=== PATIENT | male | born 1960 | race Caucasian/White ===

== ENCOUNTER 2018-02-09 22:03 | Emergency (ER) | payer MEDICARE, BC, OTHER ==
[2018-02-09 22:47] LABS: ADD MAN DIFF? NO
[2018-02-09 22:49] LABS: ABNORMAL IP MESSAGE 1; BASOPHILS % 0.2 % (0.0-2.0); EOSINOPHILS % 0.1 % (0.0-7.0); HEMATOCRIT 36.2 % (42.0-52.0); HEMOGLOBIN 12.1 g/dl (14.0-18.0); LYMPHOCYTES # 0.5 10^3/ul (0.8-2.9); LYMPHOCYTES % 4.3 % (15.0-51.0); MEAN CORPUSCULAR HEMOGLOBIN 29.5 pg (29.0-33.0); MEAN CORPUSCULAR HGB CONC 33.4 g/dl (32.0-37.0); MEAN CORPUSCULAR VOLUME 88.3 fl (82.0-101.0); MEAN PLATELET VOLUME 10.6 fl (7.4-10.4); MONOCYTE # 1.5 10^3/ul (0.3-0.9); MONOCYTES % 12.1 % (0.0-11.0); PLATELET COUNT 225 10^3/UL (140-415); POSITIVE DIFF @See below; RED CELL DISTRIBUTION WIDTH 15.1 % (11.5-14.5)
[2018-02-09 22:49] LABS: WHITE BLOOD COUNT 12.1 10^3/ul (4.8-10.8)
[2018-02-09 23:07] LABS: ALANINE AMINOTRANSFERASE 26 IU/L (13-69); ALBUMIN 4.6 g/dl (3.3-4.9); ALBUMIN/GLOBULIN RATIO 1.09; ALKALINE PHOSPHATASE 52 IU/L (42-121); ANION GAP 23 (8-16); ASPARTATE AMINO TRANSFERASE 34 IU/L (15-46); BILIRUBIN,INDIRECT 0.2 mg/dl (0-1.1); BILIRUBIN,TOTAL 0.2 mg/dl (0.2-1.3); BLOOD UREA NITROGEN 31 mg/dl (7-20); CALCIUM 8.9 mg/dl (8.4-10.2); CARBON DIOXIDE 26 mmol/L (21-31); CHLORIDE 98 mmol/L (97-110); CREATININE 2.37 mg/dl (0.61-1.24); GLUCOSE 153 mg/dl (70-220); POTASSIUM 3.5 mmol/L (3.5-5.1); SODIUM 143 mmol/L (135-144); TOTAL PROTEIN 8.8 g/dl (6.1-8.1)
[2018-02-09 23:08] LABS: LACTIC ACID 1.1 mmol/L (0.5-2.0)
[2018-02-09 23:18] LABS: TROPONIN-I 0.087 ng/ml (0.00-0.12)
[2018-02-09 23:23] LABS: INR 1.19; PROTIME 15.3 Sec (11.9-14.9); PT RATIO 1.2
[2018-02-09 23:24] LABS: PARTIAL THROMBOPLASTIN TIME 31.1 Sec (25.0-35.0)
[2018-02-10 01:05] LABS: ADD UMIC YES; UR AMORPHOUS CRYSTAL FEW /HPF (NONE SEEN); UR ASCORBIC ACID NEGATIVE (NEGATIVE); UR BACTERIA FEW /HPF (NONE SEEN); UR BILIRUBIN (Dip) NEGATIVE (NEGATIVE); UR BLOOD (Dip) 2+ mg/dL (NEGATIVE); UR CLARITY CLOUDY (CLEAR); UR COLOR YELLOW (YELLOW); UR GLUCOSE (Dip) 1+ mg/dL (NEGATIVE); UR KETONES (Dip) NEGATIVE (NEGATIVE); UR LEUKOCYTE ESTERASE (Dip) 3+ Leu/ul (NEGATIVE); UR NITRITE (Dip) POSITIVE (NEGATIVE); UR RBC 6 /HPF (0-5); UR SPECIFIC GRAVITY (Dip) 1.013 (1.003-1.030); UR SQUAMOUS EPITHELIAL CELL FEW /HPF (FEW); UR TOTAL PROTEIN (Dip) 2+ mg/dl (NEGATIVE); UR UROBILINOGEN (Dip) NEGATIVE (NEGATIVE); UR WBC > 182 /HPF (0-5)
== END 2018-02-10 02:47 | disposition home or self-care (01) ==
LOC: E/R 22:03
DX: E11.649 Type 2 diabetes mellitus with hypoglycemia without coma (principal); I10 Essential (primary) hypertension
CPT/HCPCS: 36415; 71045; 80053; 81001; 83605; 84484; 85025; 85610; 85730; 87040; 87086; 99285-25

== ENCOUNTER 2018-09-25 15:52 | Inpatient (IN) | payer MEDICARE, BC ==
[~2018-09-25 15:52] MED LIST: PIPER-TAZO 3.375 GM IV (PMX) 100 ML IVPB
[2018-09-25] MEDS: SODIUM CHLORIDE 0.9% 1L BAG IV* (16:27)
[2018-09-25] MEDS: ACETAMINOPHEN 500 MG TAB PO (16:27)
[2018-09-25 16:28] LABS: ADD MAN DIFF? NO
[2018-09-25] MEDS: metroNIDAZOLE 500 MG/NS (PMX) 100 ML IVPB (16:29)
[2018-09-25 16:35] LABS: BASOPHILS % 0.2 % (0.0-2.0); EOSINOPHILS # 0.2 10^3/ul (0.0-0.5); EOSINOPHILS % 2.1 % (0.0-7.0); HEMATOCRIT 40.4 % (42.0-52.0); HEMOGLOBIN 12.8 g/dl (14.0-18.0); LYMPHOCYTES # 0.7 10^3/ul (0.8-2.9); LYMPHOCYTES % 7.9 % (15.0-51.0); MEAN CORPUSCULAR HEMOGLOBIN 29.1 pg (29.0-33.0); MEAN CORPUSCULAR HGB CONC 31.7 g/dl (32.0-37.0); MEAN CORPUSCULAR VOLUME 91.8 fl (82.0-101.0); MEAN PLATELET VOLUME 10.3 fl (7.4-10.4); MONOCYTE # 0.3 10^3/ul (0.3-0.9); MONOCYTES % 3.2 % (0.0-11.0); NEUTROPHIL # 7.4 10^3/ul (1.6-7.5); NEUTROPHILS % 86.1 % (39.0-77.0); PLATELET COUNT 202 10^3/UL (140-415); RED CELL DISTRIBUTION WIDTH 15.2 % (11.5-14.5)
[2018-09-25 16:35] LABS: WHITE BLOOD COUNT 8.6 10^3/ul (4.8-10.8)
[2018-09-25 16:54] LABS: ADD UMIC YES; UR ASCORBIC ACID NEGATIVE (NEGATIVE); UR BACTERIA MANY /HPF (NONE SEEN); UR BILIRUBIN (Dip) NEGATIVE (NEGATIVE); UR BLOOD (Dip) 1+ mg/dL (NEGATIVE); UR CLARITY SLIGHTLY CLOUDY (CLEAR); UR COLOR YELLOW (YELLOW); UR GLUCOSE (Dip) 2+ mg/dL (NEGATIVE); UR KETONES (Dip) NEGATIVE (NEGATIVE); UR LEUKOCYTE ESTERASE (Dip) 2+ Leu/ul (NEGATIVE); UR NITRITE (Dip) NEGATIVE (NEGATIVE); UR RBC 7 /HPF (0-5); UR SPECIFIC GRAVITY (Dip) 1.011 (1.003-1.030); UR TOTAL PROTEIN (Dip) 1+ mg/dl (NEGATIVE); UR UROBILINOGEN (Dip) NEGATIVE (NEGATIVE); UR WBC 111 /HPF (0-5)
[2018-09-25 16:55] LABS: INR 1.09; PROTIME 14.2 Sec (11.9-14.9); PT RATIO 1.1
[2018-09-25 16:56] LABS: PARTIAL THROMBOPLASTIN TIME 23.4 Sec (23.0-35.0)
[2018-09-25 17:16] LABS: ANION GAP 11 (5-13); BLOOD UREA NITROGEN 27 mg/dl (7-20); CALCIUM 9.4 mg/dl (8.4-10.2); CARBON DIOXIDE 24 mmol/L (21-31); CHLORIDE 105 mmol/L (97-110); CREATININE 2.27 mg/dl (0.61-1.24); Estimated GFR 30 mL/min (>60); GLUCOSE 108 mg/dl (70-220); POTASSIUM 4.1 mmol/L (3.5-5.1); SODIUM 140 mmol/L (135-144)
[2018-09-25] MEDS: PIPER-TAZO 3.375 GM IV (PMX) 100 ML IVPB (17:16)
[2018-09-25 17:28] LABS: TROPONIN-I 0.046 ng/ml (0.000-0.120)
[2018-09-25] MEDS: MAGNESIUM SULFATE 2 GM/50 ML 50 ML IVPB (18:30)
[2018-09-25 18:41] LABS: LACTIC ACID 1.5 mmol/L (0.5-2.0)
[2018-09-25] MEDS: NORepinephrine 8MG/250 ML (PMX 250 ML IV (19:27)
[2018-09-25] MEDS ORDERED: NORepinephrine 8MG/250 ML (PMX 250 ML IV (22:00)
[2018-09-25] MEDS ORDERED: ACETAMINOPHEN 650MG/20.3ML CUP PO (22:00)
[2018-09-25] MEDS ORDERED: ALBUTEROL/IPRATROPIUM (NEB) 3 ML AMP NEB (22:00)
[2018-09-25] MEDS ORDERED: ONDANSETRON 4 MG INJ IV (22:00)
[2018-09-25 22:05] LABS: HEMOGLOBIN A1C 8.3 % (0-5.9)
[2018-09-25] MEDS ORDERED: VANCOMYCIN IV PER PHARMACY XX (23:00)
[2018-09-25] MEDS: SOD CHLORIDE 0.9% 1,000 ML IV (23:14)
[2018-09-26] MEDS: VANCOMYCIN 2 GM in SOD CHLORIDE 0.9% 500 ML IVPB (00:57)
[2018-09-26] MEDS ORDERED: GLUCOSE GEL 15 GRAM TUBE BUCCAL (01:00)
[2018-09-26] MEDS ORDERED: GLUCOSE GEL 15 GRAM TUBE PO ×2 (01:00)
[2018-09-26] MEDS ORDERED: DEXTROSE 50% 50 ML SYRINGE IV ×2 (01:00)
[2018-09-26] MEDS ORDERED: GLUCAGON 1 MG INJ IM (01:00)
[2018-09-26] MEDS: ACCU-CHEK XX (02:00)
[2018-09-26] MEDS: PIPER-TAZO 2.25 GM (PMX) 50 ML IVPB ×4 (03:13→18:40)
[2018-09-26] MEDS: MAGNESIUM HYDROXIDE 30ML CUP PO (03:20)
[2018-09-26] MEDS: SOD CHLORIDE 0.9% 1,000 ML IV ×3 (06:54→21:45)
[2018-09-26 07:55] LABS: ADD MAN DIFF? NO
[2018-09-26 07:58] LABS: BASOPHIL # 0.1 10^3/ul (0.0-0.1); BASOPHILS % 0.4 % (0.0-2.0); EOSINOPHILS # 0.1 10^3/ul (0.0-0.5); EOSINOPHILS % 0.5 % (0.0-7.0); HEMATOCRIT 35.9 % (42.0-52.0); HEMOGLOBIN 11.4 g/dl (14.0-18.0); LYMPHOCYTES # 0.8 10^3/ul (0.8-2.9); LYMPHOCYTES % 4.7 % (15.0-51.0); MEAN CORPUSCULAR HEMOGLOBIN 29.2 pg (29.0-33.0); MEAN CORPUSCULAR HGB CONC 31.8 g/dl (32.0-37.0); MEAN CORPUSCULAR VOLUME 91.8 fl (82.0-101.0); MEAN PLATELET VOLUME 9.9 fl (7.4-10.4); MONOCYTE # 1.2 10^3/ul (0.3-0.9); MONOCYTES % 6.6 % (0.0-11.0); NEUTROPHIL # 15.4 10^3/ul (1.6-7.5); NEUTROPHILS % 87.2 % (39.0-77.0); PLATELET COUNT 214 10^3/UL (140-415); RED BLOOD COUNT 3.91 10^6/ul (4.70-6.10); RED CELL DISTRIBUTION WIDTH 15.6 % (11.5-14.5)
[2018-09-26 07:58] LABS: WHITE BLOOD COUNT 17.6 10^3/ul (4.8-10.8)
[2018-09-26 08:21] LABS: ALANINE AMINOTRANSFERASE 33 IU/L (13-69); ALBUMIN 3.6 g/dl (3.3-4.9); ALBUMIN/GLOBULIN RATIO 1.24; ALKALINE PHOSPHATASE 46 IU/L (42-121); ANION GAP 10 (5-13); ASPARTATE AMINO TRANSFERASE 35 IU/L (15-46); BILIRUBIN,INDIRECT 0.3 mg/dl (0-1.1); BILIRUBIN,TOTAL 0.3 mg/dl (0.2-1.3); BLOOD UREA NITROGEN 27 mg/dl (7-20); CALCIUM 8.1 mg/dl (8.4-10.2); CARBON DIOXIDE 24 mmol/L (21-31); CHLORIDE 109 mmol/L (97-110); CREATININE 2.45 mg/dl (0.61-1.24); Estimated GFR 27 mL/min (>60); GLUCOSE 163 mg/dl (70-220); POTASSIUM 4.1 mmol/L (3.5-5.1); SODIUM 143 mmol/L (135-144); TOTAL PROTEIN 6.5 g/dl (6.1-8.1)
[2018-09-26] MEDS ORDERED: HEPARIN 5,000 UNIT/0.5 ML VIAL ×2 (08:38→20:47)
[2018-09-26] MEDS: FENOFIBRATE 145 MG TAB PO (08:49)
[2018-09-26] MEDS: ASPIRIN (EC) 81 MG TAB PO (08:50)
[2018-09-26] MEDS: FAMOTIDINE 20 MG INJ IV (08:51)
[2018-09-26] MEDS: HEPARIN 5,000 UNIT/1 ML VIAL SC ×2 (08:52→21:12)
[2018-09-26] MEDS: INSULIN ASPART [NOVOLOG] 3 ML PEN SC ×4 (08:55→21:14)
[2018-09-26 17:09] LABS: ADD UMIC YES; UR ASCORBIC ACID NEGATIVE (NEGATIVE); UR BACTERIA FEW /HPF (NONE SEEN); UR BILIRUBIN (Dip) NEGATIVE (NEGATIVE); UR BLOOD (Dip) 2+ mg/dL (NEGATIVE); UR CLARITY SLIGHTLY CLOUDY (CLEAR); UR COLOR YELLOW (YELLOW); UR GLUCOSE (Dip) 1+ mg/dL (NEGATIVE); UR KETONES (Dip) NEGATIVE (NEGATIVE); UR LEUKOCYTE ESTERASE (Dip) 3+ Leu/ul (NEGATIVE); UR NITRITE (Dip) NEGATIVE (NEGATIVE); UR RBC 30 /HPF (0-5); UR SPECIFIC GRAVITY (Dip) 1.012 (1.003-1.030); UR TOTAL PROTEIN (Dip) NEGATIVE (NEGATIVE); UR UROBILINOGEN (Dip) NEGATIVE (NEGATIVE); UR WBC 82 /HPF (0-5)
[2018-09-26 17:28] LABS: SODIUM,URINE RANDOM 102 mmol/L (30-90)
[2018-09-26] MEDS: ATORVASTATIN 40 MG TAB PO (21:05)
[2018-09-26] MEDS: INSULIN GLARGINE [LANTus] (100 UNITS/ML) SYG SC (21:11)
[2018-09-26] MEDS: NIACIN (ER) 500 MG TAB PO (22:11)
[2018-09-27] MEDS: PIPER-TAZO 2.25 GM (PMX) 50 ML IVPB ×4 (00:20→17:22)
[2018-09-27] MEDS: ACCU-CHEK XX (01:28)
[2018-09-27] MEDS: VANCOMYCIN 1 GM 250 ML IVPB (01:29)
[2018-09-27] MEDS: SOD CHLORIDE 0.9% 1,000 ML IV ×2 (01:29→12:37)
[2018-09-27 05:05] LABS: ADD MAN DIFF? NO
[2018-09-27 05:14] LABS: BASOPHILS % 0.3 % (0.0-2.0); EOSINOPHILS # 0.3 10^3/ul (0.0-0.5); EOSINOPHILS % 2.8 % (0.0-7.0); HEMATOCRIT 33.1 % (42.0-52.0); HEMOGLOBIN 10.5 g/dl (14.0-18.0); LYMPHOCYTES % 10.3 % (15.0-51.0); MEAN CORPUSCULAR HEMOGLOBIN 29.2 pg (29.0-33.0); MEAN CORPUSCULAR HGB CONC 31.7 g/dl (32.0-37.0); MEAN CORPUSCULAR VOLUME 92.2 fl (82.0-101.0); MEAN PLATELET VOLUME 10.8 fl (7.4-10.4); MONOCYTE # 0.6 10^3/ul (0.3-0.9); MONOCYTES % 6.8 % (0.0-11.0); NEUTROPHIL # 7.3 10^3/ul (1.6-7.5); NEUTROPHILS % 79.4 % (39.0-77.0); PLATELET COUNT 171 10^3/UL (140-415); RED BLOOD COUNT 3.59 10^6/ul (4.70-6.10); RED CELL DISTRIBUTION WIDTH 15.8 % (11.5-14.5)
[2018-09-27 05:14] LABS: WHITE BLOOD COUNT 9.2 10^3/ul (4.8-10.8)
[2018-09-27 05:35] LABS: BLOOD UREA NITROGEN 23 mg/dl (7-20); CALCIUM 7.7 mg/dl (8.4-10.2); CARBON DIOXIDE 25 mmol/L (21-31); CHLORIDE 113 mmol/L (97-110); Estimated GFR 31 mL/min (>60); GLUCOSE 111 mg/dl (70-220); POTASSIUM 4.6 mmol/L (3.5-5.1)
[2018-09-27 05:42] LABS: ANION GAP 4 (5-13); SODIUM 142 mmol/L (135-144)
[2018-09-27] MEDS: INSULIN ASPART [NOVOLOG] 3 ML PEN SC ×4 (07:35→20:44)
[2018-09-27] MEDS ORDERED: HEPARIN 5,000 UNIT/0.5 ML VIAL ×2 (08:05→20:46)
[2018-09-27] MEDS: FAMOTIDINE 20 MG INJ IV (08:12)
[2018-09-27] MEDS: ASPIRIN (EC) 81 MG TAB PO (08:12)
[2018-09-27] MEDS: FENOFIBRATE 145 MG TAB PO (08:12)
[2018-09-27] MEDS: NEUTRA-PHOS 250 MG PACKET PO (08:12)
[2018-09-27] MEDS: HEPARIN 5,000 UNIT/1 ML VIAL SC ×2 (08:14→20:54)
[2018-09-27 16:52] LABS: CREATININE, RANDOM URINE 66 mg/dL (20-320); MICROALBUMIN 6.8 mg/dL; MICROALBUMIN/CREATININE RATIO 103 (<30)
[2018-09-27] MEDS: INSULIN GLARGINE [LANTus] (100 UNITS/ML) SYG SC (20:58)
[2018-09-27] MEDS: NIACIN (ER) 500 MG TAB PO (21:00)
[2018-09-27] MEDS: ATORVASTATIN 40 MG TAB PO (21:00)
[2018-09-28] MEDS: PIPER-TAZO 2.25 GM (PMX) 50 ML IVPB ×2 (00:10→05:11)
[2018-09-28 05:13] LABS: ADD MAN DIFF? NO
[2018-09-28 05:20] LABS: WHITE BLOOD COUNT 7.6 10^3/ul (4.8-10.8)
[2018-09-28 05:20] LABS: BASOPHILS % 0.4 % (0.0-2.0); EOSINOPHILS # 0.5 10^3/ul (0.0-0.5); EOSINOPHILS % 5.9 % (0.0-7.0); HEMOGLOBIN 10.8 g/dl (14.0-18.0); LYMPHOCYTES % 13.6 % (15.0-51.0); MEAN CORPUSCULAR HEMOGLOBIN 28.7 pg (29.0-33.0); MEAN CORPUSCULAR HGB CONC 30.9 g/dl (32.0-37.0); MEAN CORPUSCULAR VOLUME 93.1 fl (82.0-101.0); MEAN PLATELET VOLUME 10.7 fl (7.4-10.4); MONOCYTE # 0.6 10^3/ul (0.3-0.9); MONOCYTES % 7.8 % (0.0-11.0); NEUTROPHIL # 5.5 10^3/ul (1.6-7.5); PLATELET COUNT 193 10^3/UL (140-415); RED BLOOD COUNT 3.76 10^6/ul (4.70-6.10); RED CELL DISTRIBUTION WIDTH 15.4 % (11.5-14.5)
[2018-09-28 06:02] LABS: ANION GAP 8 (5-13); BLOOD UREA NITROGEN 17 mg/dl (7-20); CALCIUM 8.3 mg/dl (8.4-10.2); CARBON DIOXIDE 24 mmol/L (21-31); CHLORIDE 111 mmol/L (97-110); CREATININE 2.13 mg/dl (0.61-1.24); Estimated GFR 32 mL/min (>60); GLUCOSE 75 mg/dl (70-220); MAGNESIUM 1.8 mg/dl (1.7-2.5); PHOSPHORUS 2.9 mg/dl (2.5-4.9); SODIUM 143 mmol/L (135-144)
[2018-09-28 06:04] LABS: POTASSIUM 4.4 mmol/L (3.5-5.1)
[2018-09-28] MEDS: SOD CHLORIDE 0.9% 1,000 ML IV (07:16)
[2018-09-28] MEDS: INSULIN ASPART [NOVOLOG] 3 ML PEN SC ×2 (07:34→11:30)
[2018-09-28] MEDS ORDERED: HEPARIN 5,000 UNIT/0.5 ML VIAL (08:48)
[2018-09-28] MEDS: FENOFIBRATE 145 MG TAB PO (08:52)
[2018-09-28] MEDS: FAMOTIDINE 20 MG INJ IV (08:52)
[2018-09-28] MEDS: ASPIRIN (EC) 81 MG TAB PO (08:52)
[2018-09-28] MEDS: HEPARIN 5,000 UNIT/1 ML VIAL SC (08:54)
[2018-09-28] MEDS: CEPHALEXIN 500 MG CAP PO (10:28)
== END 2018-09-28 14:50 | disposition home or self-care (01) | DRG 871 ==
LOC: E/R 15:52 → ICU 21:54
DX: A41.9 Sepsis, unspecified organism (principal); R65.21 Severe sepsis with septic shock; N39.0 Urinary tract infection, site not specified; N17.9 Acute kidney failure, unspecified; N18.4 Chronic kidney disease, stage 4 (severe); E78.5 Hyperlipidemia, unspecified; R06.03 Acute respiratory distress; E11.22 Type 2 diabetes mellitus with diabetic chronic kidney disease; R10.9 Unspecified abdominal pain; I12.9 Hypertensive chronic kidney disease with stage 1 through stage 4 chronic kidney disease, or unspecified chronic kidney disease; Z79.4 Long term (current) use of insulin; Z90.5 Acquired absence of kidney
CPT/HCPCS: 36415; 71045; 74018; 76775; 80048; 80053; 81001; 81003; 82043; 82962; 83036; 83605; 83735; 84100; 84155; 84300; 84484; 85025; 85610; 85730; 87040; 87045; 87075; 87081; 87086; 93005; 96374; 96375; 99291-25

== ENCOUNTER 2018-11-15 08:20 | Emergency (ER) | payer MEDICARE, BC ==
[2018-11-15] MEDS: morphine 4 MG/ML VIAL IV (08:50)
[2018-11-15] MEDS: SOD CHLORIDE 0.9% 1,000 ML IV (08:50)
[2018-11-15] MEDS: ONDANSETRON 4 MG INJ IV (08:50)
[2018-11-15] MEDS: PANTOPRAZOLE 40 MG INJ IV (08:50)
[2018-11-15 09:03] LABS: ADD UMIC YES; UR ASCORBIC ACID NEGATIVE (NEGATIVE); UR BILIRUBIN (Dip) NEGATIVE (NEGATIVE); UR BLOOD (Dip) 2+ mg/dL (NEGATIVE); UR CLARITY SLIGHTLY CLOUDY (CLEAR); UR COLOR YELLOW (YELLOW); UR GLUCOSE (Dip) NEGATIVE (NEGATIVE); UR KETONES (Dip) NEGATIVE (NEGATIVE); UR LEUKOCYTE ESTERASE (Dip) 1+ Leu/ul (NEGATIVE); UR NITRITE (Dip) NEGATIVE (NEGATIVE); UR RBC 1 /HPF (0-5); UR SPECIFIC GRAVITY (Dip) 1.014 (1.003-1.030); UR TOTAL PROTEIN (Dip) 1+ mg/dl (NEGATIVE); UR UROBILINOGEN (Dip) NEGATIVE (NEGATIVE); UR WBC 9 /HPF (0-5)
[2018-11-15] MEDS: CEFTRIAXONE 1 GM/50 ML (PMX) 50 ML IVPB (09:21)
[2018-11-15 09:26] LABS: ADD MAN DIFF? NO
[2018-11-15 09:32] LABS: WHITE BLOOD COUNT 10.8 10^3/ul (4.8-10.8)
[2018-11-15 09:32] LABS: ABNORMAL IP MESSAGE 1; BASOPHIL # 0.1 10^3/ul (0.0-0.1); BASOPHILS % 0.5 % (0.0-2.0); EOSINOPHILS # 0.3 10^3/ul (0.0-0.5); EOSINOPHILS % 2.7 % (0.0-7.0); HEMATOCRIT 39.4 % (42.0-52.0); HEMOGLOBIN 12.9 g/dl (14.0-18.0); LYMPHOCYTES % 9.3 % (15.0-51.0); MEAN CORPUSCULAR HEMOGLOBIN 29.1 pg (29.0-33.0); MEAN CORPUSCULAR HGB CONC 32.7 g/dl (32.0-37.0); MEAN CORPUSCULAR VOLUME 88.9 fl (82.0-101.0); MEAN PLATELET VOLUME 10.5 fl (7.4-10.4); MONOCYTE # 1.5 10^3/ul (0.3-0.9); NEUTROPHIL # 7.9 10^3/ul (1.6-7.5); NEUTROPHILS % 73.2 % (39.0-77.0); PLATELET COUNT 268 10^3/UL (140-415); POSITIVE DIFF @See below; RED BLOOD COUNT 4.43 10^6/ul (4.70-6.10); RED CELL DISTRIBUTION WIDTH 15.3 % (11.5-14.5)
[2018-11-15 09:49] LABS: ALANINE AMINOTRANSFERASE 37 IU/L (13-69); ALBUMIN 4.5 g/dl (3.3-4.9); ALBUMIN/GLOBULIN RATIO 1.12; ALKALINE PHOSPHATASE 60 IU/L (42-121); ANION GAP 14 (5-13); ASPARTATE AMINO TRANSFERASE 62 IU/L (15-46); BILIRUBIN,INDIRECT 0.3 mg/dl (0-1.1); BILIRUBIN,TOTAL 0.3 mg/dl (0.2-1.3); BLOOD UREA NITROGEN 37 mg/dl (7-20); CALCIUM 9.4 mg/dl (8.4-10.2); CARBON DIOXIDE 21 mmol/L (21-31); CHLORIDE 107 mmol/L (97-110); CREATININE 2.65 mg/dl (0.61-1.24); Estimated GFR 25 mL/min (>60); GLUCOSE 148 mg/dl (70-220); LIPASE 313 U/L (23-300); POTASSIUM 4.2 mmol/L (3.5-5.1); SODIUM 142 mmol/L (135-144); TOTAL PROTEIN 8.5 g/dl (6.1-8.1)
== END 2018-11-15 11:29 | disposition home or self-care (01) ==
LOC: E/R 08:20
DX: N30.90 Cystitis, unspecified without hematuria (principal); I10 Essential (primary) hypertension; Z79.4 Long term (current) use of insulin; Z79.82 Long term (current) use of aspirin
CPT/HCPCS: 36415; 74176; 80053; 81001; 83690; 85025; 87086; 96374; 96375; 99285-25

== ENCOUNTER 2019-01-16 18:39 | Inpatient (IN) | payer MEDICARE, BC ==
[2019-01-16] MEDS: DILTIAZEM 25 MG INJ IV ×4 (19:07→20:00)
[2019-01-16 19:22] LABS: ADD MAN DIFF? NO
[2019-01-16 19:29] LABS: BASOPHIL # 0.1 10^3/ul (0.0-0.1); BASOPHILS % 0.8 % (0.0-2.0); EOSINOPHILS # 0.3 10^3/ul (0.0-0.5); EOSINOPHILS % 4.1 % (0.0-7.0); HEMATOCRIT 42.4 % (42.0-52.0); HEMOGLOBIN 13.9 g/dl (14.0-18.0); LYMPHOCYTES # 1.5 10^3/ul (0.8-2.9); LYMPHOCYTES % 19.9 % (15.0-51.0); MEAN CORPUSCULAR HEMOGLOBIN 29.2 pg (29.0-33.0); MEAN CORPUSCULAR HGB CONC 32.8 g/dl (32.0-37.0); MEAN CORPUSCULAR VOLUME 89.1 fl (82.0-101.0); MEAN PLATELET VOLUME 10.8 fl (7.4-10.4); MONOCYTE # 0.8 10^3/ul (0.3-0.9); MONOCYTES % 10.2 % (0.0-11.0); NEUTROPHIL # 4.9 10^3/ul (1.6-7.5); NEUTROPHILS % 64.5 % (39.0-77.0); PLATELET COUNT 255 10^3/UL (140-415); RED BLOOD COUNT 4.76 10^6/ul (4.70-6.10); RED CELL DISTRIBUTION WIDTH 14.5 % (11.5-14.5)
[2019-01-16 19:29] LABS: WHITE BLOOD COUNT 7.6 10^3/ul (4.8-10.8)
[2019-01-16 19:35] LABS: URINE PH (Dip) POC 6.5 (5.0-8.5)
[2019-01-16 19:35] LABS: URINE BLOOD (Dip) POC 1+ (NEGATIVE); URINE KETONES (Dip) POC Negative (NEGATIVE); URINE LEUKOCYTE EST (Dip) POC Trace (NEGATIVE); URINE NITRITE (Dip) POC Negative (NEGATIVE); URINE TOTAL PROTEIN POC 2+ (NEGATIVE)
[2019-01-16 19:44] LABS: INR 1.04; PROTIME 13.7 Sec (11.9-14.9); PT RATIO 1.1
[2019-01-16 19:45] LABS: PARTIAL THROMBOPLASTIN TIME 27.7 Sec (23.0-35.0)
[2019-01-16 19:47] LABS: ANION GAP 12 (5-13); BLOOD UREA NITROGEN 31 mg/dl (7-20); CALCIUM 9.9 mg/dl (8.4-10.2); CARBON DIOXIDE 25 mmol/L (21-31); CHLORIDE 99 mmol/L (97-110); Estimated GFR 39 mL/min (>60); GLUCOSE 390 mg/dl (70-220); MAGNESIUM 1.1 mg/dl (1.7-2.5); POTASSIUM 3.8 mmol/L (3.5-5.1); SODIUM 136 mmol/L (135-144)
[2019-01-16 19:59] LABS: B-TYPE NATRIURETIC PEPTIDE 525 PG/ML (0-125)
[2019-01-16] MEDS ORDERED: morphine 2 MG INJ IV (20:30)
[2019-01-16] MEDS ORDERED: DIGOXIN 500 MCG INJ IV (20:30)
[2019-01-16] MEDS ORDERED: NACL 0.9% 3 ML SYG IV (20:30)
[2019-01-16] MEDS ORDERED: NITROGLYCERIN (SL) 0.4 MG TAB SL (20:30)
[2019-01-16] MEDS ORDERED: ACETAMINOPHEN 325 MG TAB PO (20:30)
[2019-01-16] MEDS: MAGNESIUM SULFATE 1 GM/D5W 100 ML IVPB (21:43)
[2019-01-16] MEDS: HEPARIN 1000 UNITS/ML 10 ML INJ IV (21:45)
[2019-01-16] MEDS: INSULIN LISPRO 100 UNIT/ML VIAL SC (21:50)
[2019-01-16] MEDS ORDERED: METOPROLOL 5 MG INJ IV (23:00)
[2019-01-16] MEDS ORDERED: GLUCOSE GEL 15 GRAM TUBE BUCCAL (23:30)
[2019-01-16] MEDS ORDERED: GLUCOSE GEL 15 GRAM TUBE PO ×2 (23:30)
[2019-01-16] MEDS ORDERED: DEXTROSE 50% 50 ML SYRINGE IV ×2 (23:30)
[2019-01-16] MEDS ORDERED: GLUCAGON 1 MG INJ IM (23:30)
[2019-01-16] MEDS: CEFTRIAXONE 1 GM/50 ML (PMX) 50 ML IVPB (23:33)
[2019-01-16 23:42] LABS: MAGNESIUM 1.5 mg/dl (1.7-2.5)
[2019-01-17] MEDS: MAGNESIUM SULFATE 2 GM/50 ML 50 ML IVPB (00:24)
[2019-01-17 01:08] LABS: CREATINE KINASE 266 IU/L (23-200)
[2019-01-17 01:20] LABS: CK INDEX 5.6
[2019-01-17] MEDS: INSULIN GLARGINE [LANTus] (100 UNITS/ML) SYG SC ×2 (01:43→20:15)
[2019-01-17] MEDS ORDERED: HEPARIN 25000 UNITS/250 ML 250 ML IV (02:00)
[2019-01-17] MEDS ORDERED: HEPARIN 1000 UNITS/ML 10 ML INJ IV ×2 (02:00)
[2019-01-17] MEDS: ACCU-CHEK XX (02:00)
[2019-01-17] MEDS: HEPARIN 1000 UNITS/ML 10 ML INJ IV (02:01)
[2019-01-17] MEDS: HEPARIN 25000 UNITS/250 ML 250 ML IV (02:03)
[2019-01-17 03:27] LABS: ADD MAN DIFF? NO
[2019-01-17 03:48] LABS: INR 1.09; PROTIME 14.2 Sec (11.9-14.9); PT RATIO 1.1
[2019-01-17 03:53] LABS: WHITE BLOOD COUNT 7.9 10^3/ul (4.8-10.8)
[2019-01-17 03:53] LABS: BASOPHIL # 0.1 10^3/ul (0.0-0.1); BASOPHILS % 0.9 % (0.0-2.0); EOSINOPHILS # 0.4 10^3/ul (0.0-0.5); EOSINOPHILS % 4.6 % (0.0-7.0); HEMATOCRIT 43.5 % (42.0-52.0); HEMOGLOBIN 14.2 g/dl (14.0-18.0); LYMPHOCYTES % 24.8 % (15.0-51.0); MEAN CORPUSCULAR HEMOGLOBIN 29.1 pg (29.0-33.0); MEAN CORPUSCULAR HGB CONC 32.6 g/dl (32.0-37.0); MEAN CORPUSCULAR VOLUME 89.1 fl (82.0-101.0); MONOCYTE # 0.9 10^3/ul (0.3-0.9); MONOCYTES % 11.1 % (0.0-11.0); NEUTROPHIL # 4.5 10^3/ul (1.6-7.5); NEUTROPHILS % 57.8 % (39.0-77.0); PLATELET COUNT 193 10^3/UL (140-415); RED BLOOD COUNT 4.88 10^6/ul (4.70-6.10); RED CELL DISTRIBUTION WIDTH 14.5 % (11.5-14.5)
[2019-01-17] MEDS: ASPIRIN 81 MG TAB PO (08:14)
[2019-01-17] MEDS: FISH OIL 1,000 MG CAP PO ×2 (08:14→20:07)
[2019-01-17] MEDS: INSULIN ASPART [NOVOLOG] 3 ML PEN SC ×4 (08:17→21:32)
[2019-01-17] MEDS ORDERED: IODIXANOL LOCM 100 ML BTL (08:49)
[2019-01-17] MEDS ORDERED: LIDOCAINE 1% (MDV) 20 ML INJ (08:49)
[2019-01-17] MEDS ORDERED: MIDAZOLAM 1 MG/ML 2 ML INJ (08:49)
[2019-01-17] MEDS ORDERED: FENTAnyl 50 MCG/ML VIAL (08:49)
[2019-01-17 08:54] LABS: ADD MAN DIFF? NO
[2019-01-17 08:57] LABS: BASOPHIL # 0.1 10^3/ul (0.0-0.1); EOSINOPHILS # 0.4 10^3/ul (0.0-0.5); EOSINOPHILS % 5.6 % (0.0-7.0); HEMATOCRIT 46.5 % (42.0-52.0); HEMOGLOBIN 14.7 g/dl (14.0-18.0); LYMPHOCYTES # 1.7 10^3/ul (0.8-2.9); LYMPHOCYTES % 22.8 % (15.0-51.0); MEAN CORPUSCULAR HEMOGLOBIN 28.4 pg (29.0-33.0); MEAN CORPUSCULAR HGB CONC 31.6 g/dl (32.0-37.0); MEAN CORPUSCULAR VOLUME 89.9 fl (82.0-101.0); MEAN PLATELET VOLUME 10.7 fl (7.4-10.4); MONOCYTE # 0.8 10^3/ul (0.3-0.9); MONOCYTES % 10.4 % (0.0-11.0); NEUTROPHIL # 4.4 10^3/ul (1.6-7.5); NEUTROPHILS % 59.7 % (39.0-77.0); PLATELET COUNT 239 10^3/UL (140-415); RED BLOOD COUNT 5.17 10^6/ul (4.70-6.10); RED CELL DISTRIBUTION WIDTH 14.6 % (11.5-14.5)
[2019-01-17 08:57] LABS: WHITE BLOOD COUNT 7.3 10^3/ul (4.8-10.8)
[2019-01-17] MEDS ORDERED: NITROFURANTOIN (SR) 100 MG CAP PO (09:00)
[2019-01-17] MEDS ORDERED: ASPIRIN (EC) 81 MG TAB PO (09:00)
[2019-01-17 09:18] LABS: PARTIAL THROMBOPLASTIN TIME 60.4 Sec (23.0-35.0)
[2019-01-17] MEDS: SOD CHLORIDE 0.9% 1,000 ML IV ×2 (09:30→12:50)
[2019-01-17 09:36] LABS: CREATINE KINASE 308 IU/L (23-200)
[2019-01-17 09:39] LABS: ALANINE AMINOTRANSFERASE 38 IU/L (13-69); ALBUMIN 4.2 g/dl (3.3-4.9); ALBUMIN/GLOBULIN RATIO 1.27; ALKALINE PHOSPHATASE 92 IU/L (42-121); ANION GAP 12 (5-13); ASPARTATE AMINO TRANSFERASE 47 IU/L (15-46); BILIRUBIN,INDIRECT 0.1 mg/dl (0-1.1); BILIRUBIN,TOTAL 0.1 mg/dl (0.2-1.3); BLOOD UREA NITROGEN 28 mg/dl (7-20); CALCIUM 9.9 mg/dl (8.4-10.2); CARBON DIOXIDE 25 mmol/L (21-31); CHLORIDE 104 mmol/L (97-110); CHOL/HDL RATIO 8.3 RATIO; CHOLESTEROL 266 mg/dl (100-200); CREATININE 1.77 mg/dl (0.61-1.24); Estimated GFR 40 mL/min (>60); GLUCOSE 192 mg/dl (70-220); HDL CHOLESTEROL 32 mg/dl (28-71); LDL CHOLESTEROL,CALCULATED 145 mg/dl; MAGNESIUM 1.6 mg/dl (1.7-2.5); SODIUM 141 mmol/L (135-144); TOTAL PROTEIN 7.5 g/dl (6.1-8.1); TRIGLYCERIDES 446 mg/dl (0-149)
[2019-01-17 09:44] LABS: CK INDEX 6.9
[2019-01-17 09:44] LABS: HEMOGLOBIN A1C 7.2 % (0-5.9)
[2019-01-17] MEDS ORDERED: CLOPIDOGREL 300 MG TAB ×2 (09:56→11:11)
[2019-01-17] MEDS ORDERED: CEFAZOLIN 1 GM/50 ML (PMX) 0 ML IVPB (09:56)
[2019-01-17] MEDS ORDERED: BIVALIRUDIN 250MG /NS 50 ML 50 ML IVPB ×2 (09:56→10:24)
[2019-01-17] MEDS ORDERED: NITROGLYCERIN (IC) 100 MCG/ML INJ (11:03)
[2019-01-17] MEDS ORDERED: ONDANSETRON 4 MG INJ (11:04)
[2019-01-17] MEDS ORDERED: ACETAMINOPHEN 325 MG TAB PO (11:30)
[2019-01-17] MEDS ORDERED: OXYCODONE/ACETAMINOPHEN (5/325) TAB PO ×2 (11:30)
[2019-01-17] MEDS: morphine 2 MG INJ IV (12:11)
[2019-01-17] MEDS: ONDANSETRON 4 MG INJ IV (12:12)
[2019-01-17] MEDS: BIVALIRUDIN 250 MG in SOD CHLORIDE 0.9% 500 ML IV (12:20)
[2019-01-17] MEDS: MAGNESIUM SULFATE 4 GM/100 ML 100 ML IVPB (15:28)
[2019-01-17 15:44] LABS: CREATINE KINASE 273 IU/L (23-200)
[2019-01-17 15:57] LABS: CK INDEX 6.1
[2019-01-17 16:33] LABS: ADD UMIC YES; UR ASCORBIC ACID NEGATIVE (NEGATIVE); UR BACTERIA FEW /HPF (NONE SEEN); UR BILIRUBIN (Dip) NEGATIVE (NEGATIVE); UR BLOOD (Dip) 2+ mg/dL (NEGATIVE); UR CLARITY CLEAR (CLEAR); UR COLOR STRAW (YELLOW); UR GLUCOSE (Dip) 1+ mg/dL (NEGATIVE); UR KETONES (Dip) NEGATIVE (NEGATIVE); UR LEUKOCYTE ESTERASE (Dip) 2+ Leu/ul (NEGATIVE); UR NITRITE (Dip) NEGATIVE (NEGATIVE); UR RBC 7 /HPF (0-5); UR SPECIFIC GRAVITY (Dip) 1.029 (1.003-1.030); UR TOTAL PROTEIN (Dip) 1+ mg/dl (NEGATIVE); UR UROBILINOGEN (Dip) NEGATIVE (NEGATIVE); UR WBC 51 /HPF (0-5)
[2019-01-17 16:47] LABS: SODIUM,URINE RANDOM 119 mmol/L (30-90)
[2019-01-17 16:47] LABS: CREATININE,URINE RANDOM 57.82 mg/dl (20-370)
[2019-01-17 16:57] LABS: CREATINE KINASE 291 IU/L (23-200)
[2019-01-17 17:11] LABS: CK INDEX 6.5
[2019-01-17] MEDS: ATORVASTATIN 80 MG TAB PO (20:07)
[2019-01-17] MEDS ORDERED: ATORVASTATIN 40 MG TAB PO (21:00)
[2019-01-17] MEDS ORDERED: [UNRECOGNIZED DRUG - OTHER] SQ (21:00)
[2019-01-17] MEDS ORDERED: INSULIN GLARGINE HUM REC ANLOG 30 UNIT SQ (21:00)
[2019-01-18] MEDS: CEFTRIAXONE 1 GM/50 ML (PMX) 50 ML IVPB (00:21)
[2019-01-18] MEDS: ACCU-CHEK XX (02:24)
[2019-01-18 07:02] LABS: ADD MAN DIFF? NO
[2019-01-18 07:15] LABS: WHITE BLOOD COUNT 8.6 10^3/ul (4.8-10.8)
[2019-01-18 07:15] LABS: BASOPHIL # 0.1 10^3/ul (0.0-0.1); BASOPHILS % 0.7 % (0.0-2.0); EOSINOPHILS # 0.4 10^3/ul (0.0-0.5); EOSINOPHILS % 4.9 % (0.0-7.0); HEMATOCRIT 39.9 % (42.0-52.0); HEMOGLOBIN 12.7 g/dl (14.0-18.0); LYMPHOCYTES # 1.2 10^3/ul (0.8-2.9); LYMPHOCYTES % 14.2 % (15.0-51.0); MEAN CORPUSCULAR HEMOGLOBIN 28.8 pg (29.0-33.0); MEAN CORPUSCULAR HGB CONC 31.8 g/dl (32.0-37.0); MEAN CORPUSCULAR VOLUME 90.5 fl (82.0-101.0); MEAN PLATELET VOLUME 10.5 fl (7.4-10.4); MONOCYTE # 0.9 10^3/ul (0.3-0.9); MONOCYTES % 9.9 % (0.0-11.0); NEUTROPHILS % 69.7 % (39.0-77.0); PLATELET COUNT 251 10^3/UL (140-415); RED BLOOD COUNT 4.41 10^6/ul (4.70-6.10); RED CELL DISTRIBUTION WIDTH 14.8 % (11.5-14.5)
[2019-01-18 07:31] LABS: CREATINE KINASE 249 IU/L (23-200)
[2019-01-18 07:34] LABS: ALANINE AMINOTRANSFERASE 32 IU/L (13-69); ALBUMIN 3.7 g/dl (3.3-4.9); ALBUMIN/GLOBULIN RATIO 1.15; ALKALINE PHOSPHATASE 65 IU/L (42-121); ANION GAP 9 (5-13); ASPARTATE AMINO TRANSFERASE 49 IU/L (15-46); BILIRUBIN,INDIRECT 0.1 mg/dl (0-1.1); BILIRUBIN,TOTAL 0.1 mg/dl (0.2-1.3); BLOOD UREA NITROGEN 24 mg/dl (7-20); CALCIUM 8.9 mg/dl (8.4-10.2); CARBON DIOXIDE 26 mmol/L (21-31); CHLORIDE 104 mmol/L (97-110); CREATININE 1.86 mg/dl (0.61-1.24); Estimated GFR 38 mL/min (>60); GLUCOSE 178 mg/dl (70-220); POTASSIUM 4.1 mmol/L (3.5-5.1); SODIUM 139 mmol/L (135-144); TOTAL PROTEIN 6.9 g/dl (6.1-8.1)
[2019-01-18 07:35] LABS: B-TYPE NATRIURETIC PEPTIDE 346 PG/ML (0-125)
[2019-01-18 07:38] LABS: CK INDEX 5.5
[2019-01-18 07:51] LABS: MAGNESIUM 2.3 mg/dl (1.7-2.5)
[2019-01-18 07:51] LABS: PHOSPHORUS 3.4 mg/dl (2.5-4.9)
[2019-01-18] MEDS: CLOPIDOGREL 75 MG TAB PO (08:52)
[2019-01-18] MEDS: FISH OIL 1,000 MG CAP PO ×2 (08:52→20:10)
[2019-01-18] MEDS: ASPIRIN 81 MG TAB PO (08:53)
[2019-01-18] MEDS: METOPROLOL (XL) 25 MG TAB PO (08:53)
[2019-01-18] MEDS: INSULIN ASPART [NOVOLOG] 3 ML PEN SC ×4 (09:01→20:10)
[2019-01-18 11:06] LABS: FREE T4 (FREE THYROXINE) 0.89 ng/dl (0.64-1.79)
[2019-01-18] MEDS: SOD CHLORIDE 0.9% 1,000 ML IV (13:15)
[2019-01-18 15:47] LABS: CREATININE, RANDOM URINE 61 mg/dL (20-320); MICROALBUMIN 25.6 mg/dL; MICROALBUMIN/CREATININE RATIO 420 (<30)
[2019-01-18] MEDS: ATORVASTATIN 80 MG TAB PO (20:09)
[2019-01-18] MEDS: INSULIN GLARGINE [LANTus] (100 UNITS/ML) SYG SC (20:14)
[2019-01-19] MEDS: ACCU-CHEK XX (02:00)
[2019-01-19 06:58] LABS: ADD MAN DIFF? NO
[2019-01-19 07:01] LABS: WHITE BLOOD COUNT 6.9 10^3/ul (4.8-10.8)
[2019-01-19 07:01] LABS: BASOPHILS % 0.6 % (0.0-2.0); EOSINOPHILS # 0.5 10^3/ul (0.0-0.5); EOSINOPHILS % 6.5 % (0.0-7.0); HEMATOCRIT 40.1 % (42.0-52.0); HEMOGLOBIN 12.7 g/dl (14.0-18.0); LYMPHOCYTES # 1.6 10^3/ul (0.8-2.9); LYMPHOCYTES % 22.8 % (15.0-51.0); MEAN CORPUSCULAR HEMOGLOBIN 28.9 pg (29.0-33.0); MEAN CORPUSCULAR HGB CONC 31.7 g/dl (32.0-37.0); MEAN CORPUSCULAR VOLUME 91.1 fl (82.0-101.0); MEAN PLATELET VOLUME 10.5 fl (7.4-10.4); MONOCYTE # 0.8 10^3/ul (0.3-0.9); MONOCYTES % 11.8 % (0.0-11.0); NEUTROPHILS % 57.7 % (39.0-77.0); PLATELET COUNT 223 10^3/UL (140-415); RED CELL DISTRIBUTION WIDTH 14.6 % (11.5-14.5)
[2019-01-19 07:20] LABS: ANION GAP 12 (5-13); BLOOD UREA NITROGEN 26 mg/dl (7-20); CALCIUM 9.2 mg/dl (8.4-10.2); CARBON DIOXIDE 27 mmol/L (21-31); CHLORIDE 102 mmol/L (97-110); CREATININE 2.01 mg/dl (0.61-1.24); Estimated GFR 34 mL/min (>60); GLUCOSE 136 mg/dl (70-220); MAGNESIUM 1.8 mg/dl (1.7-2.5); PHOSPHORUS 3.6 mg/dl (2.5-4.9); POTASSIUM 3.9 mmol/L (3.5-5.1); SODIUM 141 mmol/L (135-144)
[2019-01-19] MEDS: CLOPIDOGREL 75 MG TAB PO ×2 (09:00→10:13)
[2019-01-19] MEDS: INSULIN ASPART [NOVOLOG] 3 ML PEN SC ×2 (09:05→11:58)
[2019-01-19] MEDS: FISH OIL 1,000 MG CAP PO (10:13)
[2019-01-19] MEDS: METOPROLOL (XL) 25 MG TAB PO (10:14)
[2019-01-19] MEDS: ASPIRIN 81 MG TAB PO (10:14)
== END 2019-01-19 14:59 | disposition home or self-care (01) | DRG 247 ==
LOC: E/R 18:39 → TEL 01-17 14:07
PROC: 027034Z Dilation of Coronary Artery, One Artery with Drug-eluting Intraluminal Device, Percutaneous Approach (ICD-10-PCS; principal; 2019-01-17 09:07)
PROC: 4A023N7 Measurement of Cardiac Sampling and Pressure, Left Heart, Percutaneous Approach (ICD-10-PCS; 2019-01-17 09:07)
PROC: B211YZZ Fluoroscopy of Multiple Coronary Arteries using Other Contrast (ICD-10-PCS; 2019-01-17 09:07)
PROC: B215YZZ Fluoroscopy of Left Heart using Other Contrast (ICD-10-PCS; 2019-01-17 09:07)
DX: I21.4 Non-ST elevation (NSTEMI) myocardial infarction (principal); N17.9 Acute kidney failure, unspecified; I25.10 Atherosclerotic heart disease of native coronary artery without angina pectoris; E11.22 Type 2 diabetes mellitus with diabetic chronic kidney disease; I13.10 Hypertensive heart and chronic kidney disease without heart failure, with stage 1 through stage 4 chronic kidney disease, or unspecified chronic kidney disease; N18.3 Chronic kidney disease, stage 3 (moderate); E78.5 Hyperlipidemia, unspecified; E83.42 Hypomagnesemia; E66.9 Obesity, unspecified; D64.9 Anemia, unspecified; I48.0 Paroxysmal atrial fibrillation; I49.9 Cardiac arrhythmia, unspecified; Z90.5 Acquired absence of kidney; Z79.4 Long term (current) use of insulin; Z79.82 Long term (current) use of aspirin
CPT/HCPCS: 36415; 71045; 80048; 80053; 80061; 81001; 81003; 82043; 82550; 82553; 82962; 83036; 83735; 83880; 84100; 84155; 84300; 84439; 84443; 84484; 85025; 85610; 85730; 87086; 92928; 93005; 93306; 93458; 96374; 96376; 99291-25

== ENCOUNTER 2019-04-03 18:15 | Inpatient (IN) | payer MEDICARE, BC ==
[2019-04-03 19:02] LABS: ADD MAN DIFF? NO
[2019-04-03 19:05] LABS: WHITE BLOOD COUNT 8.5 10^3/ul (4.8-10.8)
[2019-04-03 19:05] LABS: BASOPHILS % 0.5 % (0.0-2.0); EOSINOPHILS # 0.4 10^3/ul (0.0-0.5); EOSINOPHILS % 4.3 % (0.0-7.0); HEMATOCRIT 46.4 % (42.0-52.0); HEMOGLOBIN 14.7 g/dl (14.0-18.0); LYMPHOCYTES # 1.3 10^3/ul (0.8-2.9); LYMPHOCYTES % 14.6 % (15.0-51.0); MEAN CORPUSCULAR HEMOGLOBIN 27.6 pg (29.0-33.0); MEAN CORPUSCULAR HGB CONC 31.7 g/dl (32.0-37.0); MEAN CORPUSCULAR VOLUME 87.1 fl (82.0-101.0); MEAN PLATELET VOLUME 10.3 fl (7.4-10.4); MONOCYTE # 0.7 10^3/ul (0.3-0.9); MONOCYTES % 7.6 % (0.0-11.0); NEUTROPHIL # 6.2 10^3/ul (1.6-7.5); NEUTROPHILS % 72.6 % (39.0-77.0); PLATELET COUNT 300 10^3/UL (140-415); RED BLOOD COUNT 5.33 10^6/ul (4.70-6.10); RED CELL DISTRIBUTION WIDTH 15.5 % (11.5-14.5)
[2019-04-03 19:33] LABS: MAGNESIUM 1.5 mg/dl (1.7-2.5)
[2019-04-03 19:33] LABS: ANION GAP 9 (5-13); BLOOD UREA NITROGEN 29 mg/dl (7-20); CALCIUM 10.1 mg/dl (8.4-10.2); CARBON DIOXIDE 32 mmol/L (21-31); CHLORIDE 103 mmol/L (97-110); CREATININE 2.02 mg/dl (0.61-1.24); Estimated GFR 34 mL/min (>60); GLUCOSE 125 mg/dl (70-220); POTASSIUM 4.2 mmol/L (3.5-5.1); SODIUM 144 mmol/L (135-144)
[2019-04-03 19:44] LABS: TROPONIN-I 0.059 ng/ml (0.000-0.120)
[2019-04-03] MEDS: MAGNESIUM OXIDE 400 MG TAB PO (20:06)
[2019-04-03] MEDS ORDERED: NACL 0.9% 3 ML SYG IV (22:00)
[2019-04-03] MEDS ORDERED: ACETAMINOPHEN 325 MG TAB PO (22:00)
[2019-04-03] MEDS ORDERED: ONDANSETRON 4 MG INJ IV (22:00)
[2019-04-03] MEDS ORDERED: ALBUTEROL/IPRATROPIUM (NEB) 3 ML AMP HHN (22:00)
[2019-04-04 01:24] LABS: CREATINE KINASE 200 IU/L (23-200)
[2019-04-04 01:36] LABS: CK INDEX 1.1; CK-MB 2.24 ng/ml (0.0-2.4); TROPONIN-I 0.059 ng/ml (0.000-0.120)
[2019-04-04 07:33] LABS: ADD MAN DIFF? NO
[2019-04-04 07:42] LABS: BASOPHIL # 0.1 10^3/ul (0.0-0.1); BASOPHILS % 0.6 % (0.0-2.0); EOSINOPHILS # 0.3 10^3/ul (0.0-0.5); EOSINOPHILS % 3.8 % (0.0-7.0); HEMATOCRIT 42.1 % (42.0-52.0); HEMOGLOBIN 13.3 g/dl (14.0-18.0); LYMPHOCYTES # 1.5 10^3/ul (0.8-2.9); LYMPHOCYTES % 17.8 % (15.0-51.0); MEAN CORPUSCULAR HEMOGLOBIN 27.5 pg (29.0-33.0); MEAN CORPUSCULAR HGB CONC 31.6 g/dl (32.0-37.0); MEAN CORPUSCULAR VOLUME 87.2 fl (82.0-101.0); MEAN PLATELET VOLUME 10.7 fl (7.4-10.4); MONOCYTE # 0.9 10^3/ul (0.3-0.9); MONOCYTES % 10.9 % (0.0-11.0); NEUTROPHIL # 5.5 10^3/ul (1.6-7.5); NEUTROPHILS % 66.8 % (39.0-77.0); PLATELET COUNT 263 10^3/UL (140-415); RED BLOOD COUNT 4.83 10^6/ul (4.70-6.10); RED CELL DISTRIBUTION WIDTH 15.4 % (11.5-14.5)
[2019-04-04 07:42] LABS: WHITE BLOOD COUNT 8.2 10^3/ul (4.8-10.8)
[2019-04-04 08:09] LABS: ALANINE AMINOTRANSFERASE 35 IU/L (13-69); ALBUMIN 4.1 g/dl (3.3-4.9); ALKALINE PHOSPHATASE 57 IU/L (42-121); ANION GAP 11 (5-13); ASPARTATE AMINO TRANSFERASE 41 IU/L (15-46); BILIRUBIN,INDIRECT 0.4 mg/dl (0-1.1); BILIRUBIN,TOTAL 0.4 mg/dl (0.2-1.3); BLOOD UREA NITROGEN 33 mg/dl (7-20); CALCIUM 9.7 mg/dl (8.4-10.2); CARBON DIOXIDE 26 mmol/L (21-31); CHLORIDE 106 mmol/L (97-110); CHOL/HDL RATIO 8.1 RATIO; CHOLESTEROL 155 mg/dl (100-200); CREATININE 1.84 mg/dl (0.61-1.24); Estimated GFR 38 mL/min (>60); GLUCOSE 77 mg/dl (70-220); HDL CHOLESTEROL 19 mg/dl (28-71); LDL CHOLESTEROL,CALCULATED 83 mg/dl; MAGNESIUM 1.6 mg/dl (1.7-2.5); POTASSIUM 4.4 mmol/L (3.5-5.1); SODIUM 143 mmol/L (135-144); TOTAL PROTEIN 7.5 g/dl (6.1-8.1); TRIGLYCERIDES 265 mg/dl (0-149)
[2019-04-04 08:11] LABS: CREATINE KINASE 186 IU/L (23-200)
[2019-04-04 08:21] LABS: CK INDEX 1.2; CK-MB 2.28 ng/ml (0.0-2.4); TROPONIN-I 0.052 ng/ml (0.000-0.120)
[2019-04-04] MEDS: METOPROLOL (XL) 25 MG TAB PO (08:33)
[2019-04-04] MEDS: CLOPIDOGREL 75 MG TAB PO (08:33)
[2019-04-04] MEDS: FENOFIBRATE 145 MG TAB PO (08:33)
[2019-04-04] MEDS: ASPIRIN (EC) 81 MG TAB PO (08:33)
[2019-04-04] MEDS: HEPARIN 5,000 UNIT/1 ML VIAL SC ×2 (08:37→20:19)
[2019-04-04] MEDS ORDERED: ATENOLOL 50 MG TAB PO (09:00)
[2019-04-04] MEDS ORDERED: GLUCOSE GEL 15 GRAM TUBE PO ×2 (11:30)
[2019-04-04] MEDS ORDERED: MAGNESIUM SULFATE 2 GM/50 ML 50 ML IVPB (11:30)
[2019-04-04] MEDS ORDERED: GLUCOSE GEL 15 GRAM TUBE BUCCAL (11:30)
[2019-04-04] MEDS ORDERED: GLUCAGON 1 MG INJ IM (11:30)
[2019-04-04] MEDS ORDERED: DEXTROSE 50% 50 ML SYRINGE IV ×2 (11:30)
[2019-04-04] MEDS: INSULIN ASPART [NOVOLOG] 3 ML PEN SC ×3 (12:58→20:21)
[2019-04-04] MEDS: MAGNESIUM SULFATE 4 GM/100 ML 100 ML IVPB (13:34)
[2019-04-04 18:31] LABS: ADD UMIC NO; UR ASCORBIC ACID NEGATIVE (NEGATIVE); UR BILIRUBIN (Dip) NEGATIVE (NEGATIVE); UR BLOOD (Dip) NEGATIVE (NEGATIVE); UR CLARITY CLEAR (CLEAR); UR COLOR STRAW (YELLOW); UR GLUCOSE (Dip) NEGATIVE (NEGATIVE); UR KETONES (Dip) NEGATIVE (NEGATIVE); UR LEUKOCYTE ESTERASE (Dip) NEGATIVE Leu/ul (NEGATIVE); UR NITRITE (Dip) NEGATIVE (NEGATIVE); UR SPECIFIC GRAVITY (Dip) 1.014 (1.003-1.030); UR TOTAL PROTEIN (Dip) NEGATIVE (NEGATIVE); UR UROBILINOGEN (Dip) NEGATIVE (NEGATIVE)
[2019-04-04 18:41] LABS: SODIUM,URINE RANDOM 111 mmol/L (30-90)
[2019-04-04 18:57] LABS: AMPHETAMINE/METHAMPHETAMINE NEGATIVE (NEGATIVE); BARBITURATES NEGATIVE (NEGATIVE); BENZODIAZEPINES NEGATIVE (NEGATIVE); CANNABINOIDS NEGATIVE (NEGATIVE); COCAINE NEGATIVE (NEGATIVE); OPIATES NEGATIVE (NEGATIVE)
[2019-04-04] MEDS: ATORVASTATIN 80 MG TAB PO (20:17)
[2019-04-04] MEDS: INSULIN GLARGINE [LANTus] (100 UNITS/ML) SYG SC (20:17)
[2019-04-05] MEDS: ACCU-CHEK XX (02:00)
[2019-04-05 06:14] LABS: ADD MAN DIFF? NO
[2019-04-05 06:19] LABS: WHITE BLOOD COUNT 6.8 10^3/ul (4.8-10.8)
[2019-04-05 06:19] LABS: BASOPHIL # 0.1 10^3/ul (0.0-0.1); BASOPHILS % 0.7 % (0.0-2.0); EOSINOPHILS # 0.5 10^3/ul (0.0-0.5); HEMATOCRIT 44.5 % (42.0-52.0); HEMOGLOBIN 14.1 g/dl (14.0-18.0); LYMPHOCYTES # 1.7 10^3/ul (0.8-2.9); LYMPHOCYTES % 24.8 % (15.0-51.0); MEAN CORPUSCULAR HEMOGLOBIN 27.8 pg (29.0-33.0); MEAN CORPUSCULAR HGB CONC 31.7 g/dl (32.0-37.0); MEAN CORPUSCULAR VOLUME 87.6 fl (82.0-101.0); MEAN PLATELET VOLUME 10.7 fl (7.4-10.4); MONOCYTES % 14.1 % (0.0-11.0); NEUTROPHIL # 3.6 10^3/ul (1.6-7.5); PLATELET COUNT 299 10^3/UL (140-415); RED BLOOD COUNT 5.08 10^6/ul (4.70-6.10); RED CELL DISTRIBUTION WIDTH 15.5 % (11.5-14.5)
[2019-04-05 06:48] LABS: CREATINE KINASE 157 IU/L (23-200)
[2019-04-05 06:58] LABS: CK INDEX 1.4; CK-MB 2.23 ng/ml (0.0-2.4)
[2019-04-05 07:02] LABS: TROPONIN-I 0.065 ng/ml (0.000-0.120)
[2019-04-05 07:08] LABS: FREE T4 (FREE THYROXINE) 0.81 ng/dl (0.64-1.79)
[2019-04-05 07:09] LABS: ALANINE AMINOTRANSFERASE 34 IU/L (13-69); ALBUMIN 4.4 g/dl (3.3-4.9); ALBUMIN/GLOBULIN RATIO 1.25; ALKALINE PHOSPHATASE 72 IU/L (42-121); ANION GAP 13 (5-13); ASPARTATE AMINO TRANSFERASE 36 IU/L (15-46); BILIRUBIN,INDIRECT 0.4 mg/dl (0-1.1); BILIRUBIN,TOTAL 0.4 mg/dl (0.2-1.3); BLOOD UREA NITROGEN 36 mg/dl (7-20); CALCIUM 10.1 mg/dl (8.4-10.2); CARBON DIOXIDE 24 mmol/L (21-31); CHLORIDE 106 mmol/L (97-110); CREATININE 2.13 mg/dl (0.61-1.24); Estimated GFR 32 mL/min (>60); GLUCOSE 87 mg/dl (70-220); MAGNESIUM 2.1 mg/dl (1.7-2.5); SODIUM 143 mmol/L (135-144); TOTAL PROTEIN 7.9 g/dl (6.1-8.1)
[2019-04-05 07:18] LABS: HEMOGLOBIN A1C 6.7 % (0-5.9); PHOSPHORUS 4.1 mg/dl (2.5-4.9)
[2019-04-05 07:45] LABS: B-TYPE NATRIURETIC PEPTIDE 258 PG/ML (0-125)
[2019-04-05] MEDS: INSULIN ASPART [NOVOLOG] 3 ML PEN SC ×4 (07:56→20:32)
[2019-04-05] MEDS: FENOFIBRATE 145 MG TAB PO (09:10)
[2019-04-05] MEDS: ASPIRIN (EC) 81 MG TAB PO (09:10)
[2019-04-05] MEDS: CLOPIDOGREL 75 MG TAB PO (09:10)
[2019-04-05] MEDS: LINAGLIPTIN 5 MG TABLET PO (09:11)
[2019-04-05] MEDS: METOPROLOL (XL) 25 MG TAB PO (09:11)
[2019-04-05] MEDS: HEPARIN 5,000 UNIT/1 ML VIAL SC ×2 (09:14→20:33)
[2019-04-05 15:13] LABS: CREATININE, RANDOM URINE 102 mg/dL (20-320); MICROALBUMIN 6.4 mg/dL; MICROALBUMIN/CREATININE RATIO 63 (<30)
[2019-04-05] MEDS: ATORVASTATIN 80 MG TAB PO (20:31)
[2019-04-05] MEDS: INSULIN GLARGINE [LANTus] (100 UNITS/ML) SYG SC (20:32)
[2019-04-06] MEDS: ACCU-CHEK XX (02:13)
[2019-04-06 05:55] LABS: ANION GAP 8 (5-13); BLOOD UREA NITROGEN 37 mg/dl (7-20); CALCIUM 9.3 mg/dl (8.4-10.2); CARBON DIOXIDE 27 mmol/L (21-31); CHLORIDE 108 mmol/L (97-110); CREATININE 1.94 mg/dl (0.61-1.24); Estimated GFR 36 mL/min (>60); GLUCOSE 95 mg/dl (70-220); MAGNESIUM 1.7 mg/dl (1.7-2.5); POTASSIUM 4.1 mmol/L (3.5-5.1); SODIUM 143 mmol/L (135-144)
[2019-04-06] MEDS: INSULIN ASPART [NOVOLOG] 3 ML PEN SC ×2 (07:41→11:53)
[2019-04-06] MEDS: CLOPIDOGREL 75 MG TAB PO (08:22)
[2019-04-06] MEDS: FENOFIBRATE 145 MG TAB PO (08:22)
[2019-04-06] MEDS: ASPIRIN (EC) 81 MG TAB PO (08:23)
[2019-04-06] MEDS: LINAGLIPTIN 5 MG TABLET PO (08:24)
[2019-04-06] MEDS: METOPROLOL (XL) 25 MG TAB PO (08:30)
[2019-04-06] MEDS: HEPARIN 5,000 UNIT/1 ML VIAL SC (08:30)
[2019-04-06] MEDS: EZETIMIBE 10 MG TAB PO (09:00)
== END 2019-04-06 15:05 | disposition home or self-care (01) | DRG 639 ==
LOC: E/R 18:15 → 6WM 19:48
PROVIDERS: Internal Medicine
DX: E11.649 Type 2 diabetes mellitus with hypoglycemia without coma (principal); T38.3X5A Adverse effect of insulin and oral hypoglycemic [antidiabetic] drugs, initial encounter; I25.10 Atherosclerotic heart disease of native coronary artery without angina pectoris; Z95.5 Presence of coronary angioplasty implant and graft; I12.9 Hypertensive chronic kidney disease with stage 1 through stage 4 chronic kidney disease, or unspecified chronic kidney disease; E11.22 Type 2 diabetes mellitus with diabetic chronic kidney disease; N18.9 Chronic kidney disease, unspecified; Z85.828 Personal history of other malignant neoplasm of skin; E78.5 Hyperlipidemia, unspecified; I25.2 Old myocardial infarction; I48.0 Paroxysmal atrial fibrillation; E83.42 Hypomagnesemia; N17.9 Acute kidney failure, unspecified
CPT/HCPCS: 36415; 71045; 80048; 80053; 80061; 80307; 81003; 82043; 82550; 82553; 82962; 83036; 83735; 83880; 84100; 84155; 84300; 84439; 84443; 84484; 85025; 93005; 99285-25; G0378

== ENCOUNTER 2019-06-03 21:19 | Emergency (ER) | payer MEDICARE, BC ==
[2019-06-03] MEDS: IBUPROFEN 600 MG TAB PO (22:21)
== END 2019-06-04 01:04 | disposition home or self-care (01) ==
LOC: E/R 06-04 01:04
DX: M54.31 Sciatica, right side (principal); M54.32 Sciatica, left side; G89.29 Other chronic pain; I10 Essential (primary) hypertension; I25.2 Old myocardial infarction; E11.9 Type 2 diabetes mellitus without complications; Z85.828 Personal history of other malignant neoplasm of skin; Z79.4 Long term (current) use of insulin; Z79.82 Long term (current) use of aspirin; Z79.02 Long term (current) use of antithrombotics/antiplatelets
CPT/HCPCS: 72100; 99283-25